=== PATIENT | male | born 1980 | race Caucasian/White ===

== ENCOUNTER → 2024-11-12 15:05 | Outpatient (BNVA) | payer OTHER, SELFPAY | PROVIDERS: Visit Provider Physician Assistant Medical | DX: S67.197A Crushing injury of left little finger, initial encounter (principal); S61.317A Laceration without foreign body of left little finger with damage to nail, initial encounter; W23.0XXA Caught, crushed, jammed, or pinched between moving objects, initial encounter; Z23 Encounter for immunization | CPT/HCPCS: 12001; 73130; 90715; 99204 ==

== ENCOUNTER → 2024-11-14 14:13 | Outpatient (BNVA) | payer OTHER, SELFPAY | PROVIDERS: Visit Provider Physician Assistant | DX: S61.317A Laceration without foreign body of left little finger with damage to nail, initial encounter (principal); S67.197A Crushing injury of left little finger, initial encounter; W23.0XXA Caught, crushed, jammed, or pinched between moving objects, initial encounter | CPT/HCPCS: 99213 ==

== ENCOUNTER → 2024-11-21 14:03 | Outpatient (BNVA) | payer OTHER, SELFPAY | PROVIDERS: Visit Provider Physician Assistant | DX: Z48.02 Encounter for removal of sutures (principal); S67.197A Crushing injury of left little finger, initial encounter; S61.317A Laceration without foreign body of left little finger with damage to nail, initial encounter; W23.0XXA Caught, crushed, jammed, or pinched between moving objects, initial encounter; Z02.79 Encounter for issue of other medical certificate | CPT/HCPCS: 99213 ==